=== PATIENT | female | born 1950 | race African-American/Black ===

== ENCOUNTER 2023-07-25 06:06 | Outpatient (REF) | payer MEDICARE, SELFPAY ==
[2023-07-25 06:11] LABS: MANUAL DIFF FLAG NO
[2023-07-25 06:31] LABS: Basophils Absolute Auto 0.1 X10*3/uL (0.0-0.2); Eosinophils Absolute Auto 0.8 X10*3/uL (0.0-0.4); Eosinophils Percent Auto 9.8 % (0-4); Hematocrit 28.7 % (37.0-47.0); Hemoglobin 9.2 g/dl (12.0-16.0); Imm Gran Abs Auto 0.05 X10*3/uL (0.00-0.03); Imm Gran Pct Auto 0.6 % (0.0-0.4); Lymphocytes Absolute Auto 1.9 X10*3/uL (1.2-4.9); Lymphocytes Percent Auto 24.3 % (20-40); Mean Corpuscular HGB Conc 32.1 g/dl (31.0-35.0); Mean Corpuscular Hemoglobin 31.6 pg (27.0-33.0); Mean Corpuscular Volume 98.6 fL (80.0-98.0); Mean Platelet Volume 8.6 fL (9.4-12.3); Monocytes Absolute Auto 1.4 X10*3/uL (0.1-1.2); Monocytes Percent Auto 17.7 % (2-11); Neutrophils Absolute Auto 3.6 x10*3/uL (2.0-8.3); Neutrophils Percent Auto 46.6 % (45-73); Platelet Count 302 X10*3/uL (160-400); Red Blood Count 2.91 X10*6/uL (4.20-5.50); Red Cell Distribution Width 14.3 % (11.0-16.0); White Blood Count 7.8 X10*3/uL (4.8-10.8)
[2023-07-25 06:39] LABS: INTERNATIONAL NORM RATIO 2.1 (0.9-1.1)
[2023-07-25 06:50] LABS: Alanine Aminotransferase 12 U/L (0-31); Albumin Level 2.8 g/dL (3.5-5.0); Alkaline Phosphatase 80 U/L (39-117); Anion Gap 9 (12-20); Aspartate Amino Transferase 26 U/L (5-31); Bilirubin Total 0.4 mg/dL (0.0-1.0); Blood Urea Nitrogen 10 mg/dL (9-16); Calcium 8.8 mg/dL (8.4-10.2); Carbon Dioxide 27 mmol/L (22-29); Chloride 108 mmol/L (96-108); Estimated Glomerular Filt Rate > 60; Glucose Random 86 mg/dL (60-115); Potassium 4.2 mmol/L (3.3-5.1); Sodium 140 mmol/L (135-145); Total Protein 6.4 g/dL (6.5-8.0)
== END 2023-07-25 06:07 | disposition home or self-care (01) ==
LOC: HO.MMNH2L 06:06
PROVIDERS: Visit Provider Hospitalist
DX: I95.9 Hypotension, unspecified (principal)
CPT/HCPCS: 36415; 80053; 85025; 85610

== ENCOUNTER 2023-08-02 06:26 | Outpatient (REF) | payer MEDICARE, SELFPAY ==
[2023-08-02 06:51] LABS: MANUAL DIFF FLAG NO
[2023-08-02 07:21] LABS: Basophils Absolute Auto 0.1 X10*3/uL (0.0-0.2); Basophils Percent Auto 1.3 % (0-2); Eosinophils Absolute Auto 0.6 X10*3/uL (0.0-0.4); Eosinophils Percent Auto 7.9 % (0-4); Hematocrit 27.7 % (37.0-47.0); Hemoglobin 8.7 g/dl (12.0-16.0); Imm Gran Abs Auto 0.05 X10*3/uL (0.00-0.03); Imm Gran Pct Auto 0.6 % (0.0-0.4); Lymphocytes Absolute Auto 2.2 X10*3/uL (1.2-4.9); Lymphocytes Percent Auto 27.6 % (20-40); Mean Corpuscular HGB Conc 31.4 g/dl (31.0-35.0); Mean Corpuscular Hemoglobin 32.2 pg (27.0-33.0); Mean Corpuscular Volume 102.6 fL (80.0-98.0); Mean Platelet Volume 10.6 fL (9.4-12.3); Monocytes Absolute Auto 1.3 X10*3/uL (0.1-1.2); Monocytes Percent Auto 15.9 % (2-11); Neutrophils Absolute Auto 3.7 x10*3/uL (2.0-8.3); Neutrophils Percent Auto 46.7 % (45-73); Platelet Count 165 X10*3/uL (160-400); Red Cell Distribution Width 16.4 % (11.0-16.0)
== END 2023-08-02 06:27 | disposition home or self-care (01) ==
LOC: HO.MMNH2L 06:26
PROVIDERS: Visit Provider Hospitalist
DX: N17.9 Acute kidney failure, unspecified (principal)
CPT/HCPCS: 36415; 80048; 85025

== ENCOUNTER 2023-08-06 07:22 | Outpatient (REF) | payer MEDICARE, SELFPAY ==
[2023-08-06 06:23] LABS: MANUAL DIFF FLAG NO
[2023-08-06 07:07] LABS: Basophils Absolute Auto 0.1 X10*3/uL (0.0-0.2); Eosinophils Absolute Auto 0.6 X10*3/uL (0.0-0.4); Eosinophils Percent Auto 7.9 % (0-4); Hematocrit 27.1 % (37.0-47.0); Hemoglobin 8.5 g/dl (12.0-16.0); Imm Gran Abs Auto 0.02 X10*3/uL (0.00-0.03); Imm Gran Pct Auto 0.3 % (0.0-0.4); Lymphocytes Absolute Auto 1.7 X10*3/uL (1.2-4.9); Lymphocytes Percent Auto 24.1 % (20-40); Mean Corpuscular HGB Conc 31.4 g/dl (31.0-35.0); Mean Corpuscular Hemoglobin 32.4 pg (27.0-33.0); Mean Corpuscular Volume 103.4 fL (80.0-98.0); Neutrophils Absolute Auto 3.7 x10*3/uL (2.0-8.3); Neutrophils Percent Auto 52.7 % (45-73); Platelet Count 246 X10*3/uL (160-400); Red Blood Count 2.62 X10*6/uL (4.20-5.50); Red Cell Distribution Width 17.2 % (11.0-16.0); White Blood Count 7.1 X10*3/uL (4.8-10.8)
[2023-08-06 07:46] LABS: Anion Gap 12 (12-20); Blood Urea Nitrogen 7 mg/dL (9-16); Calcium 8.8 mg/dL (8.4-10.2); Carbon Dioxide 23 mmol/L (22-29); Chloride 113 mmol/L (96-108); Estimated Glomerular Filt Rate > 60; Glucose Random 92 mg/dL (60-115); Potassium 3.8 mmol/L (3.3-5.1); Sodium 144 mmol/L (135-145)
== END 2023-08-06 07:23 | disposition home or self-care (01) ==
LOC: HO.MMNH2L 07:22
PROVIDERS: Visit Provider Hospitalist
DX: N17.9 Acute kidney failure, unspecified (principal)
CPT/HCPCS: 36415; 80048; 85025

== ENCOUNTER 2024-12-24 13:25 | Outpatient (AMB) | payer MEDICARE, SELFPAY ==
--- NOTE | 2024-12-24 13:55 | MHC.OFFVIS ---
Intake Visit Reasons: Diabetes, Heel Pain, Toe Nail issues Intake Note: Bev is a 74 year old female who presents today as anew patient for a diabetic foot exam. Patient states her last known glucose was 216 and her last reported A1c is currently unknown. Patient reports she experiences numbness and tingling in her feet. She reports having a wound to her left foot. Allergies No Known Allergies (No Known Allergies*) Allergy (Verified 12/24/24 14:39) HPI Comments Details: The patient is a 74-year-old female with a past medical history as seen below presenting for diabetic foot exam with thickened, discolored, dystrophic toenails x10 and eczema affecting her lower extremity and hands. The condition has been ongoing for over a year, characterized by numbness, tingling, and cracked skin, which sometimes leads to bleeding. She has been using lotion and receives a Dupixent injection, which is due this week. The patient also reports a history of gout, arthritis, and cellulitis, which contribute to her overall discomfort and pain. She experiences aches and pains in her legs and feet, which are exacerbated by her skin condition, leading to difficulty attending to her feet. The patient has experienced hyperglycemia, with a recent blood sugar reading of 216 mg/dL, which is higher than her usual range of 120-150 mg/dL. She has not been monitoring her blood sugar regularly due to pain associated with testing. She denies any new pedal injuries. Denies any other pedal concerns. [facility] Medical History (Updated 12/25/24 @ 13:37 by Sujata Beckett DPM) Pes planus Fissures in skin of both feet Eczema Nail disorder Nail dystrophy Tinea unguium Diabetes mellitus Diabetic neuropathy Review of Systems Const Details: - Dermatological: Reports eczema with cracked skin on lower extremities and hands. - Neurological: Reports numbness and tingling. - Musculoskeletal: Reports pain in legs and feet, history of gout and arthritis. - Endocrine: Reports hyperglycemia, recent blood sugar of 216 mg/dL. All systems reviewed & are unremarkable except as noted in HPI and below Physical Exam Extrem Other: Bilateral lower extremity focused physical exam: Derm: Severe eczema noted to bilateral lower extremities with hyperpigmentation, xerosis and scaling/flaking of skin. Toenails x10 noted to be slightly thickened, slightly discolored, dystrophic, and elongated with subungual debris. No interdigital maceration noted. No open lesions abrasions or wounds noted. No ecchymosis noted. No clinical signs of infection noted. Vascular: DP/PT pulses mildly palpable. Capillary refill time less than 3 seconds. Temperature gradient warm to warm. Pedal hair absent. No varicosities noted. Mild edema noted to bilateral lower extremities. Neuro: Protective sensations grossly diminished to light touch and monofilament testing. MSK: Diffuse pain on palpation to the lower extremities due to severe eczema. Limited range of motion of the forefoot, hindfoot and ankles. Patient seen in a wheelchair. Pes planus foot type noted. Office Procedures AMB Debridement/Avulsion Podia Details: Debrided toenails x10 using sterile nail nippers without incidents. 53700-Quzqpsetxjd of Nail 6+ Procedure code (CPT) selection complete Diabetic Foot Exam G9226 - Diabetic Foot Exam Results Reviewed Results Reviewed: Patient states her most recent blood glucose was 216 mg/dL. Assessment & Plan Assessment & Plan (1) Diabetic neuropathy: Code(s): E11.40 - Type 2 diabetes mellitus with diabetic neuropathy, unspecified Category: Medical (2) Diabetes mellitus: Code(s): E11.9 - Type 2 diabetes mellitus without complications Category: Medical Qualifiers: Diabetes mellitus type: type 2 Diabetes mellitus complication status: with neurologic complications (3) Tinea unguium: Code(s): B35.1 - Tinea unguium Category: Medical (4) Nail dystrophy: Code(s): L60.3 - Nail dystrophy Category: Medical (5) Nail disorder: Code(s): L60.9 - Nail disorder, unspecified Category: Medical (6) Eczema: Code(s): L30.9 - Dermatitis, unspecified Category: Medical (7) Fissures in skin of both feet: Code(s): R23.4 - Changes in skin texture Category: Medical (8) Pes planus: Code(s): M21.40 - Flat foot [pes planus] (acquired), unspecified foot Category: Medical Qualifiers: Laterality: bilateral Qualified Code(s): M21.41 - Flat foot [pes planus] (acquired), right foot; M21.42 - Flat foot [pes planus] (acquired), left foot Plan Patient was informed and verbally consented to the use of an ambient scribe for clinic note documentation during this visit. I discussed with the patient the importance of managing her eczema with a medicated cream and ointment (ammonium lactate and pimecrolimus), which will be sent to her pharmacy for pickup. We also talked about the need for regular nail care every nine weeks to reduce toenail thickness and prevent discomfort. Additionally, I recommended diabetic shoes and inserts to help with foot discomfort and prevent further skin issues. - Prescribed ammonium lactate, pimecrolimus, and diabetic shoes and inserts. - Debrided toenails x10. - Advised patient to wear supportive shoes and to avoid barefoot walking. a medicated lotion for eczema to be sent to the pharmacy for patient use on hands and feet. - Advised patient to adhere to diabetic management as per PCP. - Advised patient to monitor her feet daily. RTC in 9 weeks. Orders: Orders AMB Diabetic Foot Exam 12/24/24 E11.40 - Type 2 diabetes mellitus with diabetic neuropathy, unspecified, E11.9 - Type 2 diabetes mellitus without complications AMB Debridement/Avulsion Podiatry Today B35.1 - Tinea unguium, E11.40 - Type 2 diabetes mellitus with diabetic neuropathy, unspecified, E11.9 - Type 2 diabetes mellitus without complications, L30.9 - Dermatitis, unspecified, L60.3 - Nail dystrophy, L60.9 - Nail disorder, unspecified, M21.40 - Flat foot [pes planus] (acquired), unspecified foot, R23.4 - Changes in skin texture Medications: New [Diabetic shoes and inserts] As directed 1 ea 0RF B35.1 - Tinea unguium, E11.40 - Type 2 diabetes mellitus with diabetic neuropathy, unspecified, E11.9 - Type 2 diabetes mellitus without complications, L30.9 - Dermatitis, unspecified, L60.3 - Nail dystrophy, L60.9 - Nail disorder, unspecified, R23.4 - Changes in skin texture ammonium lactate 12% 1 appl topical DAILY 385 grams 1RF L30.9 - Dermatitis, unspecified, R23.4 - Changes in skin texture pimecrolimus 1% 1 appl topical BID 60 grams 1RF L30.9 - Dermatitis, unspecified, R23.4 - Changes in skin texture Coding Level of Care Code New Pt Level 4 (24894) Diagnoses Diabetic neuropathy E11.40 Diabetes mellitus E11.9 Diabetes mellitus type: type 2 Diabetes mellitus complication status: with neurologic complications Tinea unguium B35.1 Nail dystrophy L60.3 Nail disorder L60.9 Eczema L30.9 Fissures in skin of both feet R23.4 Pes planus of both feet M21.41; M21.42 Laterality: bilateral CPT Codes Skin Debridement - CPT: 21113-Plbwdhxczli of Nail 6+ ([id number]) Diabetic Foot Exam - CPT: G9226 - Diabetic Foot Exam ([id number]) Time Spent (min) 53 Comment 8 mins for procedure
--- OUTSIDE RECORDS SUMMARY | 2024-12-25 01:22 | XMS_ITS ---
Author Organization [facility] Care Team Providers Care Energy Manager Name Role Phone Valeria Dailey Unavailable Unavailable Kena Hogue Unavailable Unavailable Slim Jeffrey Unavailable Unavailable Allergies and adverse reactions No Known Allergies Care Team Name Role Address Phone Organization Dates Slim Jeffrey PCP [address] [facility] [address], [place], [address], [facility] (Office): : [facility] 07/24/2023 - 08/06/2023 Valeria Dailey [address] [place], [address], [facility] (Office): : [facility] 07/24/2023 - 08/06/2023 Kena Hogue [address] [facility] [address], [address], [facility] (Office): : [facility] 07/24/2023 - 08/06/2023 Mental Status Section Date Assessment Total Score Description 08/06/2023 BIMS 15 cognitively int act CAM 0 No delirium ind icated PHQ-9 00 07/30/2023 BIMS 15 cognitively int act CAM 0 No delirium ind icated PHQ-9 00 Insurance Providers Problems Problem # Description Date of onset Resolved Date Code CodeSystem Concern Status 1 BODY MASS INDEX [BMI] 45.0-49.9, ADULT 07/26/[id number] active 2 ACUTE KIDNEY FAILURE, UNSPECIFIED 07/24/[address] active 3 ANEMIA, UNSPECIFIED 07/24/[address] active 4 ESSENTIAL (PRIMARY) HYPERTENSION 07/24/[address] active 5 MAJOR DEPRESSIVE DISORDER, SINGLE EPISODE, UNSPECIFIED 07/24/[address] active 6 MORBID (SEVERE) OBESITY DUE TO EXCESS CALORIES 07/24/[address] active 7 MUSCLE WASTING AND ATROPHY, NOT ELSEWHERE CLASSIFIED, MULTIPLE SITES 07/24/[address] active 8 OPIOID ABUSE, UNCOMPLICATED 07/24/[address] active 9 OTHER HYPOTENSION 07/24/[address] active 10 PERSONAL HISTORY OF OTHER VENOUS THROMBOSIS AND EMBOLISM 07/24/[address] active 11 POLYOSTEOARTHRITIS, UNSPECIFIED 07/24/[address] active 12 UNSPECIFIED ASTHMA, UNCOMPLICATED 07/24/[address] active 13 UNSPECIFIED DIASTOLIC (CONGESTIVE) HEART FAILURE 07/24/[address] active 14 UNSPECIFIED GLAUCOMA 07/24/[address] active Reason for Referral No Reasons for Referral Entered Social History Social History Observation Description Start Date End Date Code Code System Current Smoking Status Tobacco smoking consumption unknown 825339870 SNOMED CT Sex Assigned At Female 1950 18582-5 [facility] Gender Identity Sexual Orientation Vital Signs Code Code System Vitals Name Values and Units Timing Information 99379-2 LOINC Pain Level Value=8.0 08/06/2023 9279-1 LOINC Respiratory Rate Value=18.0 Units=/m in 08/05/2023 8462-4 LOINC Blood Pressure-Diastolic Value=63 Un its=mmHg 08/05/2023 8480-6 LOINC Blood Pressure-Systolic Yqkdo=249 Un its=mmHg 08/05/2023 8310-5 LOINC Body Temperature Value=97.6 Units= F 08/05/2023 8867-4 LOINC Heart rate Value=77.0 Units=/min 57171-3 [facility] O2 % BldC Oximetry Value=95.0 Units= % 08/05/2023 53636-2 [facility] Weight Skjwe=534.0 Units=Lbs 8302-2 [facility] Height Value=60.0 Units=Inches 07/24/2023
--- OUTSIDE RECORDS SUMMARY | 2024-12-25 01:22 | XMS_ITS | Clinical Summary ---
Author Organization [facility] Address [address] [address] Phone Care Team Providers Care Special Education Curriculum Specialist Name Role Phone Antonio Harris MD Primary Care Provider Unavai lable Allergies No known active allergies Medications predniSONE (DELTASONE) 10 MG tablet 50 mg of prednisone once a day 2 days 40 mg of prednisone once a day the following 3 days 30 mg of prednisone daily the following 3 days 20 mg of prednisone daily the following 3 days 10 mg of prednisone daily for final 3 days 40 tablet 8 Active Social History Tobacco Use Types Packs/Day Years Used Date Smoking Tobacco: Never Smokeless Tobacco: Never Alcohol Use Standard Drinks/Week Comments No 0 (1 standard drink = 0.6 oz pur e alcohol) Education Answer Date Recorded Are you interested in more education? Not on kt e 06/02/2022 Are you concerned about learning? Not on file 06/02/2022 No 06/02/2022 No 06/02/2022 Comments Unknown Sex and Gender Information Value Date Recorded Sex Assigned at Not on file Legal Sex Female 2:16 PM EDT Gender Identity Not on file Sexual Orientation Not on file Last Filed Vital Signs Vital Sign Reading Time Taken Comments Blood Pressure 143/87 06/22/2017 5:31 PM EDT Pulse 88 06/22/2017 4:33 PM EDT Temperature 37 C (98.6 F) 06/22/2017 4:33 PM EDT Respiratory Rate 16 06/22/2017 4:33 PM EDT Oxygen Saturation 100% 06/22/2017 4:33 PM EDT Inhaled Oxygen Concentration - - Weight - - Height - - Body Mass Index - - Plan of Treatment Not on file Medical Devices Not on file Insurance MEDICARE REPLACEMENT Member Subscriber Plan / Payer (Ef fective 2017-Present) Name:gaurav June Relation to Subscriber:Self Name:Capriandreas June Payer ID:[id number] (NAIC) Type:Medicare Address: [place] [id number] Member Subscriber Plan / Payer (Ef fective 2017-Present) Name:mickniharika June Relation to Subscriber:Self Name:mickniharika June Payer ID:[id number] (NAIC) Type:Medicare Address: [place] [id number] MEDICARE REPLACEMENT [place] [id number] Care Teams Special Education Curriculum Specialist Relationship Specialty Start Date End Date Antonio Harris MD PCP - General Internal Medicine 06/22/17 Additional Source Comments The information contained in this document represents components of the legal health record. It is not the complete legal health record.[facility]
--- OUTSIDE RECORDS SUMMARY | 2024-12-25 01:22 | XMS_ITS | Data Portability ---
Author Organization [facility], [facility] Address [address] [place] [address] Care Team Providers Care Orthopedic Shoe Maker Name Role Phone JERE DAMIEN Primary Care Provider Assessment Encounter Date Assessment Date Assessment LastModified by Organization Details LastModified Time 08/10/2023 08/10/2023 I am seeing the patient today under the supervision of Dr. Batres who was available but who did not see the patient. HPI: Patient is a secondary right wrist pain difficulty lifting pushing point given with motion probably wearing a wrist brace which seems to help some of her pain. She notes she has osteoarthritis throughout her body. See if this could be causing her symptoms Past family, medical, social history and review of systems has been reviewed, updated and signed by me and is located in the patient s chart. Examination:R wrist exam: Mild warmth, effusion, erythema, ecchymosis, limited ROM, tender radial scaphoid joint, negative Finkelsteins, negative nerve compression, neurovascularly intact, negative scaphoid shift, negative ulnar ballottement, negative basal joint grind, 3/5 strength. X-rays reviewed at [facility] is radial scaphoid osteoarthritis and first [facility] Impression: Radial Scaphoid osteoarthritis Plan: After a long discussed with the patient patient was proceeded with wrist injection please see procedure note we will follow us on a p.r.n. basis. He will contact me if she wants to proceed with surgical intervention which she will follow-up with Dr. Jaimes. [email or web address] Not available 08/10/2023 10:03:30 Plan of Treatment Reminders Order Date Submit Date Provider Last Modified By Organization Details Last Modified Time Details Appointments None recorded. Lab None recorded. Referral physical therapist referral - S/P Reverse TSA WBAT with the LUE. ROM to tolerance light rotator cuff and pariscapula r strengtheni ng 2-3 times week 6 weeks HEP after 2023 024 [email or web address] Not available 4 12:40:13 Procedures None recorded. Surgeries None recorded. Imaging XR, wrist, 2 view - 2v rt wrist, f/u, rm 118 2024 025 [email or web address] [address], [place], [address], 5 14:22:36 XR, hand, 3 or more view - 3v right hand room 313 2023 024 [facility], [address], [address], [place], [address], 4 11:13:38 XR, shoulder, 2 or more view - rm 221 LT shldr 2 views ( pt in wheelchair) 2023 024 [email or web address] Not available 4 12:40:13 Medication Orders None recorded. Patient TargetsNo targets recorded. Patient InstructionsNo instructions recorded. Reason for Referral Physical Therapist Referral for History of total arthroplasty of left shoulder S/P Reverse TSAWBAT with the LUE.ROM to tolerancelight rotator cuff and pariscapular strengthening2-3 times week 6 weeks HEP after Referring Physician: Ciro Barajas, Orthopedic Surgery, [id number] Encounter Date: 05/17/2023 Results Created Date Observation Date Name Description Value Unit Range Abnormal Flag Note LastModifiedBy Organization Detail LastModifiedTime 10/06/19 24 05/08/2022 imagi ng/di agnos tic resul t No observ ation record ed. [email or web address] Not Available 09/07 02:48:37 07/31/19 25 07/30/2024 XR, wrist , 2 view [email or web address]:/ [email or web address] ?Encry pted=s hAaTro YD8dLq bEUv6g %2BXZw aYqtaq 0bqfl% 2Fg9IQ a4ajBk vP9nXo QUaueC m3YtLR FvZlgJ JJ8mAn HZtai3 4i7400 AC0Kla HSAU6O hKiQtr MwF INTERFACE [facility] [address], [address], 07/30/2024 16:12:21 07/31/19 25 07/30/2024 XR, wrist , 2 view [email or web address]:/ [email or web address] ?Encry pted=s hAaTro YD8dLq bEUv6g %2BXZw aYqtaq 0bqfl% 2Fg9IQ a4ajBk vP9nXo QUaueC m3YtLR FvZlgJ JJ8mAn HZtai3 2g0384 AC0Kla HSAU6O hKiQtr MwF INTERFACE [address], [address], 07/30/2024 16:12:23 Result Notes Documentation Provider Name and Address Organization Details Recorded Time Xr, Wrist, 2 View : [email or web address] Encrypted=cuWnFyeRA9eXxkW Uv6g%3NWWypIvupa4kihu%2Fg 5YPh3lkGakP4gKcESaiiPl1Qn CBKbQgfAFD2lBcUAtts58g643 8CX5YsgRYNI0AbNzCqrUjM Not Available [facility] 07/30/2024 16:12: 21 Xr, Wrist, 2 View : [email or web address] 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 Procedures Surgical History Date Name Laterality Status Provider Name and Address Organization Details Recorded Time 5 JZWrist Joint Inj Celestone completed Lalo Jaimes MD [address], [place], [address], [facility] 08/03/2024 13:49:11 4 JZWrist Joint Inj completed Robert Ferguson PA-C [address], [place], [address], [facility] 08/10/2023 10:03:47 total shoulder replacement completed FIFI GROSSMAN [facility] [address] 08/10/2023 09:42:11 Imaging Results None recorded. Procedure Notes None recorded. Medical Equipment None Reported. Allergies No known drug allergies Medications Name Sig Start Date Stop Date Status Note LastModified by Organization Details LastModified Time furosemide 40 mg tablet TAKE 1 TABLET BY MOUTH DAILY NEEDED FOR WEIGHT GAIN OF 5LBS IN A WEEK active Not Available Not Available No t Available latanoprost 0.005 % eye drops INSTILL 1 DROP BOTH EYES AT BEDTIME active Not Available Not Available No t Available prednisone 10 mg tablet TAKE 4 TABLETS BY MOUTH ONCE DAILY FOR 5 DAYS, 2 TABLETS DAILY FOR 5 DAYS, 1 TABLET DAILY FOR 4 DAYS THEN STOP active Not Available Not Available No t Available prednisone 20 mg tablet active Not Available Not Available Not Available lovastatin 40 mg tablet TAKE 1 TABLET BY MOUTH EVERY EVENING WITH FOOD active Not Available Not Available No t Available clobetasol 0.05 % topical cream APPLY THIN LAYER TOPICALLY TO THE AFFECTED AREA TWICE DAILY active Not Available Not Available No t Available warfarin 2.5 mg tablet 08/09 completed Not Available Not Available Not Available ciprofloxac in 500 mg tablet TAKE 1 TABLET BY MOUTH TWICE DAILY FOR 10 DAYS active Not Available Not Available No t Available sulfamethox azole 800 mg-trimetho prim 160 mg tablet 08/09 completed Not Available Not Available Not Available warfarin 4 mg tablet 08/09 completed Not Available Not Available Not Available pantoprazol e 20 mg tablet,karely yed release TAKE 1 TABLET BY MOUTH DAILY active Not Available Not Available No t Available warfarin 6 mg tablet 08/09 completed Not Available Not Available Not Available triamcinolo ne acetonide 0.025 % topical cream APPLY TO SCALP UNDER BREASTS ABDOMINAL FOLD AND BUTTOCKS TWICE DAILY NEEDED active Not Available Not Available No t Available doxycycline monohydrate 100 mg capsule TAKE 1 CAPSULE BY MOUTH TWICE DAILY WITH FOOD AND WATER FOR 2 WEEKS active Not Available Not Available No t Available cephalexin 500 mg capsule TAKE 1 CAPSULE BY MOUTH FOUR TIMES A DAY FOR 7 DAYS. active Not Available Not Available No t Available lisinopril 10 mg tablet TAKE 1 TABLET BY MOUTH DAILY active Not Available Not Available No t Available warfarin 2 mg tablet 08/09 completed Not Available Not Available Not Available warfarin 5 mg tablet TAKE 1 TABLET BY MOUTH EVERY DAY OR DIRECTED 08/09 completed Not Available Not Available Not Available gabapentin 300 mg capsule TAKE 1 CAPSULE BY MOUTH DAILY active Not Available Not Available No t Available hydrocortis one 2.5 % topical cream APPLY THIN LAYER TOPICALLY TO THE AFFECTED AREA DAILY active Not Available Not Available No t Available hydroxyzine HCl 25 mg tablet Take 1 tablet 3 times a day by oral route. active Not Available Not Available No t Available hydrochloro thiazide 25 mg tablet TAKE 1 TABLET BY MOUTH DAILY active Not Available Not Available No t Available furosemide 20 mg tablet active Not Available Not Available Not Available nystatin 100,000 unit/gram topical powder APPLY TO THE AFFECTED AREA TWICE DAILY active Not Available Not Available No t Available warfarin 1 mg tablet 08/09 completed Not Available Not Available Not Available albuterol sulfate HFA 90 mcg/actuati on aerosol inhaler INHALE 1 PUFF BY MOUTH EVERY 6 HOURS NEEDED active Not Available Not Available No t Available colchicine 0.6 mg tablet TAKE 1 TABLET BY MOUTH DAILY active Not Available Not Available No t Available ketoconazol e 2 % topical cream APPLY TOPICALLY TO THE SCALP TWICE DAILY active Not Available Not Available No t Available hydroxyzine HCl 10 mg tablet active Not Available Not Available Not Available clotrimazol e 1 % topical cream APPLY TOPICALLY TWICE DAILY FOR 30 DAYS active Not Available Not Available No t Available loratadine 10 mg tablet TAKE 1 TABLET BY MOUTH DAILY active Not Available Not Available No t Available hydroxyzine pamoate 25 mg capsule TAKE 2 CAPSULES BY MOUTH THREE TIMES DAILY active Not Available Not Available No t Available enoxaparin 40 mg/0.4 mL subcutaneou s syringe 08/09 completed Not Available Not Available Not Available lactulose 10 gram/15 mL oral solution TAKE 15 ML BY MOUTH DAILY active Not Available Not Available No t Available acetaminoph en Acetamino phen 325MG Capsule 05/23 completed Statu s: 'Disc ontin ued'; Not Available Not Available Not Available oxycodone 10 mg tablet TAKE 1 TABLET BY MOUTH EVERY 6 HOURS NEEDED FOR PAIN active Not Available Not Available No t Available oxycodone HCl-oxycodo ne-ASA as directed 1-2 TABLETS EVERY [address] WHILE TAKING THIS MEDICATIO N 08/09 completed Statu s: 'Curr ent'; Not Available Not Available Not Available Eliquis 5 mg tablet TAKE 1 TABLET BY MOUTH TWICE DAILY active Not Available Not Available No t Available colchicine 0.6 mg capsule TAKE 1 CAPSULE BY MOUTH DAILY active Not Available Not Available No t Available Vitals Date Recorded Body height Body mass index (BMI) Body weight Provider Name and Address Organization Details Last Updated DateTime 05/17/2023 162.56 cm 54.1 kg/m2 093514.6 g NOELLE WESTBROOK [facility] 05/17/2023 15:07:13 Date Recorded Body height Provider Name an d Address Organization Details Last Updated DateTime 06/14/2023 162.56 cm ELIDIA LANTIGUA [facility] 06/14/2023 13:45:04 Date Recorded Body height Body mass index (BMI) Body weight Provider Name and Address Organization Details Last Updated DateTime 07/30/2024 162.56 cm 42.1 kg/m2 285478.13 g KEZIA RASHID [facility] 07/30/2024 16:00:00 Date Recorded Body height Body mass index (BMI) Body weight Provider Name and Address Organization Details Last Updated DateTime 08/10/2023 162.56 cm 42.1 kg/m2 597431.13 g FIFI GROSSMAN [facility] 08/10/2023 09:40:33 Social History None recorded. Functional Status None recorded. Mental Status None recorded. Family History Nothing Reported. Medical History No medical history recorded. Gynecological HistoryNo gynecological history recorded. Obstetrics History GPAL:G 0 P 0 0 0 0 Past Encounters Encounter ID Performer Location Encounter Start Date Encounter Closed Date Diagnosis/Indication Diagnosis SNOMED-CT Code Diagnosis ICD10 Code Diagnosis IMO Codes Diagnosis Note [id number] DAVION Ortiz [address] [place] [address] 06/14/2023 13:42:15 07/06/2023 11:32:13 Aftercare 111667063 Z47.1 History of reverse prosthetic total arthroplasty of left shoulder 6254175293 7348275 Z96.771 [id number] MD Sonia Ahn [address] [place] [address] 05/17/2023 14:37:27 06/07/2023 12:40:12 History of total arthroplasty of left shoulder 3680334185 2538749 Z96.500 [id number] DAVION Flores [address] [place] [address] 08/10/2023 09:32:25 09/07/2023 08:26:51 Pain of right hand 7385935417 54340 M79.641 Osteoarthr itis of wrist 363309573 M19.112 [id number] MD [place]OL[facility] [place] [facility] [address] [place] [address] 07/30/2024 15:12:34 08/06/2024 14:22:36 Pain of right wrist 6571010720 85453 M25.531 828637 Arthritis of right wrist 6403147748 597735 M19.031 [id number] Health Concerns Section Related Observation LastModified by Organization Detai ls LastModified Time None Recorded Concern Status LastModified by Organization Details LastModified Time None Recorded Advance Directives Directive None Recorded Payers Insurance Date Sequence Insurance Name Policy Number Policy Negrete Covered Member ID Negrete Member ID Guarantor Name 07/30/2024 1 [facility] (MEDICARE REPLACEMENT/A DVANTAGE - PPO) [id number] May Nini Rico [id number] June Nini Rioc 07/05/2023 2 [place] [facility] June Nini Rico [id number] June F Sam Rico 07/05/2023 2 [place] [facility] June Nini Rico [id number] June Nini Rico 08/06/2024 2 [place] [facility] June Sam-Co juno [id number] June Sam Rico 08/06/2024 1 [facility] (MEDICARE REPLACEMENT/A DVANTAGE - HMO) June Nini Rico [id number] June Nini Rico Notes Date Note Type Note Provider Name and Address Organization Details Recorded Time 05/17/2023 text/html The patient returns today doing well 12 weeks status post a left reverse total shoulder arthroplasty. Has been compliant with postoperative restrictions, protocols and physical therapy. Patient weaned from sling at week 2. At that point, initiated physical therapy. Is currently working on active elevation. PFMSH and ROS has been reviewed, updated, and is located in the patient's chart. On physical examination, the patient presents today out of the sling. Surgical incision site is benign. Anterior, middle, and posterior deltoid are intact. Minimal atrophy. Axillary nerve function is intact. Passive manipulation of the shoulder reveals no crepitus. Active-assisted elevation to approximately 125, external rotation approximately 45, internal rotation to 20. Able to support the arm with antigravity strength once positioned overhead. No shoulder instability. No warmth, no redness nor erythema. No evidence for infection. No lymphadenopathy. X-RAY REPORT: X-rays were ordered, obtained and reviewed today at [facility],2 views obtained reveal indwelling reverse shoulder arthroplasty. Additional callus formation noted in the proximal humerus improved over the last 2 months. IMPRESSION: Doing well status post recent total shoulder arthroplasty. Will continue to follow a standard protocol. Will continue physical therapy. Discussed the importance of daily stretching and strengthening to achieve the best long-term outcome from the total shoulder arthroplasty. While they understand the majority of the recovery will likely be completed by month 3, patients who have been diligent with an ongoing stretching and strengthening program continue to report improvements in their total shoulder arthroplasty and shoulder function for 6 months. The patient continue to follow a standard protocol. Referred back to physical therapy until discharged to a home exercise program. Will continue to use anti-inflammatories p.r.n. Narcotic refills are not required. Updated work notes given. Recheck at approximately 4 months postoperatively. Ciro Barajas MD [address] [place] [address], [place], [address], [facility] 05/17/2023 15:38:12 06/14/2023 text/html The patient returns today doing well now 4 months status post leftreverse total shoulder arthroplasty. No significant complaints. Denies pain. Pleased with the outcome from the total shoulder arthroplasty at this juncture. Working diligently on a home stretching and light strengthening program. Has been discharged from physical therapy. PFMSH and ROS has been reviewed, updated, and signed by me and is located in the patient's chart. On physical examination, well-appearing individual in no acute distress, alert and oriented x 3 with a pleasant affect. Cervical spine range of motion is full at this time without radicular signs or symptoms. No cervical outflow tenderness. Anterior, middle, and posterior deltoid are intact. No axillary nerve dysfunction. Active elevation to approximately 155-160, external rotation approximately 55, internal rotation approximately 30. Anterior, middle, and posterior deltoid are intact. No shoulder instability. No warmth, no redness nor erythema. No crepitus. Global rotator cuff strength at 4+. Subscapularis is intact with a negative belly-press, lift-off and bear-hugger tests. IMPRESSION: Status post total shoulder arthroplasty. Doing well at this time. Good pain relief. Good function. Good recovery of strength. Will continue with a home exercise program. Once again encouraged them to continue with a daily stretching and light strengthening program as they will continue to see improvements both in terms of strength, function, but most importantly endurance going forward. Further radiographs not required at this time. Recommendation is a recheck in approximately one year anniversary to follow-up on the total shoulder arthroplasty. Should problems develop in the interim or questions arise, they have been encouraged to contact us, but at this time discharged from further care to follow-up at approximately one year postoperatively with radiographs. Chandrakant Lowery PA-C [address], [place], [address], [facility] 06/14/2023 14:23:12 07/30/2024 text/html ROS as noted in the HPI Diagnosis: Osteoarthritis right wrist The patient presents at our request. She is describing severe pain in her right wrist. She would like to discuss surgical intervention. Past family, medical, social history and review of systems has been reviewed, updated and is located in the patient s chart. Examination: Healthy appearing patient in no apparent distress. Alert and oriented. She has very limited right wrist range of motion. Well-preserved finger range of motion. Tender to palpation over her radial and midcarpal joints on the right. Provocative testing the right wrist is difficult to interpret secondary to pain and stiffness. No atrophy in either upper extremity. Brisk capillary refill in all digits X-rays ordered, obtained, and reviewed today at [facility]: PA and lateral of the right wrist reveal a scapholunate gap with severe radial scaphoid arthritis as well as midcarpal arthritis. Plan:The patient and I discussed her situation at length. Given her clinical and radiographic findings I believe that surgical intervention should involve a total wrist arthrodesis. We discussed the nature of that surgery and its potential risks including infection, injury to blood vessels, tendons, nerves, malunion or nonunion of the arthrodesis, the potential need for hardware removal in the future. All her questions were answered she is requested an injection today. She tolerated it well. She will follow-up with us at her discretion. Lalo Jaimes MD [address], [place], [address], [facility] 08/03/2024 13:50:07 OBGyn Episode No OBEpisode recorded.
--- OUTSIDE RECORDS SUMMARY | 2024-12-25 01:22 | XMS_ITS | Patient Health Record ---
Author Organization [facility] steve Golden Address [address] [place] [address] Care Team Providers Care Ostomy Rn Name Role Phone Antonio Harris MD Primary Care Provider Unavaila Abelardo Hall Unavailable [phone] Reason For Referral No Information Medications Medication SIG (Take, Route, Fr equency, Duration) Notes Start Date End Date Status ProAir HFA Active Lovastatin Active Latanoprost Active oxyCODONE-Acetaminophen Active Meloxicam Active Indapamide Active Problems Problem Type SNOMED Code ICD Code Onset Dates Problem Status W/U Status Risk Notes Problem Onychomycosis (856849333) Onychomycosis (110.1) Active confirmed Problem Disorder of joint of ankle and/or foot (168585630) Arthritis - Degenerative (719.97) Active confirmed Problem Pain in limb (67766639) Pain in Limb (729.5) Active confirmed Problem Paronychia (19842629) Paronychia (681.11) Active confirmed Problem Foot ulcer (27376133) Ulcer of Other Part of Foot (707.15) Active confirmed Problem Abscess /Cellulitis (682.7) Active confirmed Plan Of Treatment Pending Test Test Name Order Date X ray : Foot, left 2V 11/19/2012 X ray : Foot, right 2V 11/19/2012 [id number] NAIL, 1-5 11/19/2012 90328- Debride <25 sq cm 12/04/2012 43160 I&D ABSCESS- SIMPLE,SINGLE 013 Insurance Providers Payer Name Payer Address Payer Phone Subscriber Number Group Number Insured Name Patient Relationship to Insured Coverage Start Date Coverage End Date Medicare [employer] [address] [place] [address] [phone] [id number] Bev Parsons Self - patient is the insured Medical (General) History Medical History History ICD Code Arthritis asthma chicken pox diverticulitis high blood pressure hypercholesterolemia measles Surgical History Surgery Date(Month/Year) carpal tunnel surgery gall bladder hysterectomy laser surgery-bilateral eyes rotator cuff bilateral
== END 2024-12-24 14:30 | disposition home or self-care (01) ==
PROVIDERS: PCP Internal Medicine; Visit Provider Student in an Organized Health Care Education/Training Program
DX: E11.40 Type 2 diabetes mellitus with diabetic neuropathy, unspecified (principal); B35.1 Tinea unguium; L60.3 Nail dystrophy; L60.9 Nail disorder, unspecified; L30.9 Dermatitis, unspecified; R23.4 Changes in skin texture; M21.41 Flat foot [pes planus] (acquired), right foot; M21.42 Flat foot [pes planus] (acquired), left foot
CPT/HCPCS: 11721; 99204; G9226

== ENCOUNTER → 2024-12-24 13:25 | Outpatient (BNVA) | payer MEDICARE, SELFPAY | PROVIDERS: PCP Internal Medicine; Visit Provider Student in an Organized Health Care Education/Training Program | DX: E11.40 Type 2 diabetes mellitus with diabetic neuropathy, unspecified (principal); B35.1 Tinea unguium; L60.3 Nail dystrophy; L60.9 Nail disorder, unspecified; L30.9 Dermatitis, unspecified; R23.4 Changes in skin texture; M21.41 Flat foot [pes planus] (acquired), right foot; M21.42 Flat foot [pes planus] (acquired), left foot | CPT/HCPCS: 11721; 99202 ==